=== PATIENT | female | born 1960 | race Two or more races ===

== ENCOUNTER → 2025-01-22 | Emergency (ER) | payer OTHER ==
[~2025-01-22] VITALS: Ht 165.1 cm; Wt 78.5 kg
[~2025-01-22] MED LIST: 0.9 % SODIUM CHLORIDE 1,000 ML IV STA; CIPROFLOXACIN IN 5 % DEXTROSE 400 MG/200 ML PIGGYBAG IV ONE; CIPROFLOXACIN IN 5 % DEXTROSE 400 MG/200 ML PIGGYBAG IV STA; DIPHENHYDRAMINE HCL 50 MG/ML VIAL 1ML IV STA; DIPHENHYDRAMINE HCL 50 MG/ML VIAL 1ML ONE; FAMOTIDINE/PF 20 MG/2 ML VIAL IV STA; FAMOTIDINE/PF 20 MG/2 ML VIAL ONE; LACTOBACILLUS ACIDOPHILUS 1 CAP CAP PO ONE; LACTOBACILLUS ACIDOPHILUS 1 CAP CAP PO STA; METHYLPREDNISOLONE SOD SUCC 125 MG VIAL IV STA; METHYLPREDNISOLONE SOD SUCC 125 MG VIAL ONE; ONDANSETRON 4 MG TAB.RAPDIS PO STA; ONDANSETRON HCL 2 MG/ML VIAL ONE
[2025-01-22 22:30] VITALS: BP 136/78; O2SAT 96
[2025-01-23 02:10] LABS: INR 1.05
[2025-01-23 02:12] LABS: BASO % 0.3 % (0.1-1.2); EOS # 0.10 (0.04-0.54); EOS % 1.1 % (0.7-7.0); LYMPH # 0.86 (1.18-3.74); LYMPH % 9.1 % (19.3-53.1); MEAN PLATELET VOLUME 9.50 fl (9.4-12.4); MONO # 1.24 (0.24-0.82); NEUT # 7.15 (1.56-6.13); NEUT % 75.8 % (34.0-71.1); RED CELL DISTRIBUTION WIDTH 12.2 % (11.6-14.4)
[2025-01-23 02:13] LABS: MONO % 13.1 % (4.7-12.5)
[2025-01-23 02:19] LABS: ERYTHROCYTE SEDIMENTATION RATE 67 mm/hr (0-30)
[2025-01-23 02:33] LABS: ALT/SGPT 33.0 U/L (12-78); AST/SGOT 21.0 U/L (15-37); BILIRUBIN TOTAL 0.87 mg/dL (0.3-1.2); BUN CREA RATIO 14.0 (7.0-25.0); CREATININE SERUM 0.85 mg/dL (0.55-1.02); GFR 67.33; GLOBULINA 3.5 G/DL (2.4-3.5); GLUCOSE FASTING 129.0 mg/dL (65-100); OSMOLALITY SERUM 277.0 MOSM/KG (275-295)
[2025-01-23 02:49] LABS: COVID-19 AG NEGATIVE (NEGATIVE)
[2025-01-23 06:51] LABS: URINE APPEARANCE Clear; URINE BILIRRUBIN Negative (NEGATIVE); URINE BLOOD Moderate; URINE COLOR Yellow; URINE GLUCOSE Negative (NEGATIVE); URINE KETONE Negative (NEGATIVE); URINE LEUKOCYTE Negative; URINE NITRATE Negative; URINE PROTEIN Negative (NEGATIVE); URINE UROBILINOGEN 0.2 E.U./dl
[2025-01-23 06:56] LABS: URINE BACTERIA 656.5 uL (0.0-1933); URINE EPITHELIAL CELLS 22.5 uL (0.0-38.8); URINE RBC 20.1 uL (0.0-20.8); URINE WBC 18.3 uL (0.0-23.2)
[2025-01-23 07:15] LABS: URINE CAST 0.84 uL (0.0-1.40)
[2025-01-23 07:16] LABS: URINE MUCUS HEAVY
== END | disposition home or self-care (01) ==
LOC: ER 22:19
PROVIDERS: Physician Assistant Medical
DX: K52.89 Other specified noninfective gastroenteritis and colitis (principal); J45.909 Unspecified asthma, uncomplicated; E78.49 Other hyperlipidemia; Z91.013 Allergy to seafood; E03.8 Other specified hypothyroidism; E86.0 Dehydration; B34.9 Viral infection, unspecified; Z20.822 Contact with and (suspected) exposure to COVID-19